=== PATIENT | male | born 1975 | race Caucasian/White ===

== ENCOUNTER 2019-06-29 14:13 | Emergency (ER) | payer BC ==
--- NOTE | 2019-06-29 14:30 | NUR ---
Called patient x 1 , no answer
--- NOTE | 2019-06-29 14:36 | NUR ---
PATIENT NOT FOUND IN ER NOR SURROUNDING AREA; LWBS
--- NOTE | 2019-06-29 14:40 | NUR ---
Called pt no answer, pt LWBS
== END 2019-06-29 14:40 | disposition left against medical advice (07) ==
LOC: SED 14:13
DX: H93.90 Unspecified disorder of ear, unspecified ear (principal); Z53.21 Procedure and treatment not carried out due to patient leaving prior to being seen by health care provider

== ENCOUNTER 2019-07-21 08:33 | Emergency (ER) | payer BC ==
[~2019-07-21] VITALS: Ht 180.3 cm; Wt 79.4 kg
[2019-07-21 08:40] VITALS: BP_SYST 129
--- NOTE | 2019-07-21 08:40 | NUR ---
Patient to ER bed 4 to gown for evaluation. Side rails up. Report given to MARCELL Malone.
--- NOTE | 2019-07-21 08:41 | NUR ---
ER at bedside examining patient.
--- NOTE | 2019-07-21 08:45 | NUR ---
MD NEGRO AT BEDSIDE ASSESSING PT
[2019-07-21 09:48] LABS: BASOPHILS % (AUTO) 0.3 % (0.0-2.0); EOSINOPHILS % (AUTO) 0.4 % (0.0-4.0); HEMATOCRIT 44.6 % (36-54); HEMOGLOBIN 14.9 g/dL (14.0-18.0); LYMPHOCYTES # (AUTO) 1.5 K/uL (1.0-5.5); LYMPHOCYTES % (AUTO) 21.2 % (20.5-51.5); MEAN CORPUSCULAR HEMOGLOBIN 31 pg (27-31); MEAN CORPUSCULAR HGB CONC 33 % (32-36); MEAN CORPUSCULAR VOLUME 93 fL (79.0-98.0); MONOCYTES # (AUTO) 0.5 K/uL (0.0-1.0); MONOCYTES % (AUTO) 7.7 % (1.7-9.3); NEUTROPHILS # (AUTO) 4.9 K/uL (1.8-7.7); NEUTROPHILS % (AUTO) 70.4 % (40.0-70.0); PLATELET COUNT (AUTO) 254 K/uL (130-430); RED BLOOD CELL COUNT(AUTO) 4.78 MIL/uL (4.2-6.2); RED CELL DISTRIBUTION WIDTH 13.3 % (9.0-15.0); WHITE BLOOD COUNT (AUTO) 6.9 K/uL (4.8-10.8)
[2019-07-21 09:57] LABS: ANION GAP 3 (5-15); CHLORIDE 106 mmol/L (98-107); CREATININE 1.14 mg/dL (0.55-1.30); GLUCOSE 110 mg/dL (70-99); SODIUM SERUM 136 mmol/L (136-145); UREA NITROGEN, BLOOD 15 mg/dL (8-21)
[2019-07-21 10:00] LABS: GFR AFRICAN AMERICAN 91 mL/min (>90)
[2019-07-21 10:02] LABS: ALANINE AMINOTRANSFERASE 25 U/L (12-78); ALBUMIN 3.9 g/dL (3.4-4.8); ASPARTATE AMINOTRANSFERASE 16 U/L (10-37); TOTAL BILIRUBIN 0.7 mg/dL (0.0-1.0)
[2019-07-21 10:05] LABS: C-REACTIVE PROTEIN QUANT < 0.2 mg/dL (0-0.5)
--- NOTE | 2019-07-21 10:20 | NUR ---
[place] of care received at this time, pt ambulatory, A&Ox4, afebrile.
[2019-07-21 11:08] VITALS: BP_SYST 131
--- NOTE | 2019-07-21 11:08 | NUR ---
Patient given written and verbal discharge instructions and verbalizes understanding. ER MD discussed with patient the results and treatment provided. Patient in stable condition. ID arm band removed. Rx of NORCO AND MOTRIN given. Patient educated on pain management and to follow up with PMD. Pain Scale 0/10. Opportunity for questions provided and answered. Medication side effect fact sheet provided. PATIENT INSTRUCTED TO CALL BACK FOR REMAINING LABS.
== END 2019-07-21 11:08 | disposition home or self-care (01) ==
LOC: SED 08:33
DX: N50.3 Cyst of epididymis (principal)
CPT/HCPCS: 36415; 76870-TC; 80053; 84702-TC; 85025; 86140; 99284